=== PATIENT | female | born 1935 | race Caucasian/White ===

== ENCOUNTER 2016-11-05 21:37 | Emergency (ER) | payer MEDICARE ==
[~2016-11-05 21:37] MED LIST: ALBU17IN INH; ALBU83IN INH; AMLO10TA2 PO; ASPI325T PO; ATEN25TA PO; FOLI1TAB2 PO; ISOS30TA4 PO; LISI25TA PO; METH2.5TA PO; NITR4TASL SL; OMEP20CA3 PO; VITA100072 PO; ZOCO40TA PO
[2016-11-05] MEDS ORDERED: PERCOCET 5MG/325MG TAB As Ordered ONE (22:22)
--- NOTE | 2016-11-05 23:38 | EDDOCDS ---
Nurse's Notes [facility] Name: Rose Carbone Age: 81 yrs Sex: Female : 1935 Arrival Date: 11/05/2016 Time: 21:37 Bed 10 Private MD: Esteban Cortes A. Diagnosis: Pain in right shoulder Presentation: 11/05 21:40 Presenting complaint: EMS states: right shoulder surgery last week. pt ran out of pain mlc meds, pt did take 800 mg ibuprofen prior to arriving. Adult Sepsis Screening: The patient does not have new or worsening altered mentation. Patient's respiratory rate is less than 22. Systolic blood pressure is greater than 100. Patient has a qSOFA score of 0- Negative Sepsis Screen. Suicide/Homicide risk assessment- the patient denies having any suicidal and/or homicidal ideations and does not present with any other emotional, behavioral or mental health complaints. Status: Patient is not a servicer or dependent. Transition of care: patient was not received from another setting of care. 21:40 Acuity: ALDO Level 4 mlc 21:40 Method Of Arrival: Ambulance mlc Triage Assessment: 21:47 General: Appears in no apparent distress, comfortable, Behavior is cooperative. Pain: mlc Location: anterior aspect of right shoulder Pain currently is 5 out of 10 on a pain scale. The patient is triaged at the bedside. See Assessment in Nurses Notes section of ED record. Neurological: Level of Consciousness is awake, alert, obeys commands, Oriented to person, place, time. Cardiovascular: Capillary refill < 3 seconds Pulses are all present. Respiratory: Airway is patent Respiratory effort is even, unlabored, Respiratory pattern is regular. Derm: Skin is pink, warm & dry. Bruising that is green, on anterior aspect of right shoulder 3 bandaids covering incisions, no drainage noted. Historical: - Allergies: SULFA (SULFONAMIDES); - Home Meds: 1. Albuterol Inhl 2. methotrexate sodium 2.5 mg Oral tab 5 tab weekly 3. simvastatin 40 mg Oral tab 1 tab once daily 4. atenolol 25 mg Oral tab 1 tab once daily 5. nitroglycerin 0.4 mg SL subl 1 tab every 5 minutes 6. Calcium + Vitamin D 600 mg calcium- 200 unit Oral tab 7. amlodipine 10 mg Oral tab 1 tab once daily 8. isosorbide mononitrate 30 mg Oral tab 1 tab once daily 9. lisinopril 2.5 mg Oral tab 1 tab once daily 10. folic acid 1 mg Oral tab 1 tab once daily 11. aspirin 325 mg Oral tab 1 tab once daily 12. [place] 5-325 mg Oral tab 1 tab every 4 hours (Last dose: 11/05/2016 05:30) - PMHx: COPD; Hypercholesterolemia; Hypertension; Rheumatoid Arthritis; - PSHx: (1966); eye surgery; left hand surgery; Cataract Surgery- Bilateral; Cardiac stents; left rotator cuff; - Social history: Smoking status: Patient states was never smoker of tobacco. No barriers to communication noted, The patient speaks fluent Pashto. - Family history: Not pertinent. - : The pt / caregiver states he / she is not on anticoagulants. Home medication list is obtained from the patient, pill bottles. - Exposure Risk Screening:: None identified. Screenin:50 Screening information is obtained from the patient. Fall risk: No risks identified. [facility] Assistance ADL's: requires no assistance with activities of daily living. Abuse/DV Screen: The patient / caregiver reports he/she is: not in a situation that causes fear, pain or injury. Nutritional screening: No deficits noted. Advance Directives: Currently, there is no health care proxy. There is no active DNR order. There is no Power of Drug Safety Data Management Specialist. home support is adequate. Assessment: 22:25 General: see triage assessment. [facility] 22:25 Reassessment: Patient appears in no apparent distress at this time. pt medicated per [facility] order. 23:36 General: Appears in no apparent distress, comfortable, Behavior is cooperative. [facility] Neurological: Level of Consciousness is awake, alert, Oriented to person, place, time. Respiratory: Airway is patent Respiratory effort is even, unlabored, Respiratory pattern is regular. Vital Signs: 21:43 BP 150 / 67; Pulse 74; Resp 18; Temp 98.9(TE); Pulse Ox 97% on R/A; Weight 49.9 kg (R); elizabeth Height 5 ft. 0 in. (152.40 cm) (R); Pain 5/10; 23:14 BP 128 / 96 LA Sitting (auto/reg); Pulse 69 MON; Resp 20 S; Temp 98.7(TE); Pulse Ox 95% cln on R/A; Pain 5/10; 21:43 Body Mass Index 21.48 (49.90 kg, 152.40 cm) elizabeth Vitals: 21:47 Log In Time N/A - ambulance arrival. mlc ED Course: 21:38 Patient visited by Blaise Correia, Sweatband Cutting Machine Operator. ml3 21:38 Esteban Cortes is Private Physician. ml3 21:38 Krissy Lazaro,LORI is Primary Nurse. ml3 21:38 Patient moved to Waiting ml3 21:38 Patient moved to 10 ml3 21:42 Triage Initiated mlc 21:44 Patient visited by Liya Cornejo PCA. elizabeth 21:44 Pt greeted and oriented to ED. Patient advised of names of staff involved in care, elizabeth location of call crawford, wait times and NPO status. Patient has correct armband on for positive identification. Bed in low position. Call light in reach. Side rails up X2. Pulse ox on. NIBP on. 22:02 Jaja Gallagher MD is Attending Physician. fg 22:10 Patient visited by Jaja Gallagher MD. fg 22:26 Patient visited by Krissy Lazaro RN. mlc 23:15 Patient visited by Elsa Crawford PCA. cln 23:36 The patient / caregiver is instructed regarding the plan of care and ED course. mlc 23:36 No IV's were initiated during this patient's visit. No procedures done that require mlc assistance. Administered Medications: 22:25 Drug: oxyCODONE-acetaminophen 1 tabs [oxycodone-acetaminophen 5 mg-325 mg tablet (1 mlc tabs)] Route: PO; 23:37 Follow up: Response: Pain is decreased mlc Order Results: There are currently no results for this order. Outcome: 23:11 Discharge ordered by Provider. fg 23:36 Discharge Assessment: Patient awake, alert and oriented x 3. No cognitive and/or mlc functional deficits noted. Patient verbalized understanding of disposition instructions. patient administered narcotics - yes. Pt provided with safe discharge. The following High Risk Discharge criteria are identified: None. Discharged to home via wheelchair, with family. Condition: good Condition: stable. Discharge instructions given to patient, family, Instructed on discharge instructions, follow up and referral plans. medication usage, Demonstrated understanding of instructions, medications, Pt was receptive of discharge instructions/ teaching. Prescriptions given X 2. No special radiology studies were completed. Property sent home with patient. 23:37 Patient left the ED. [facility] Signatures: Blaise Correia, Sweatband Cutting Machine Operator Unit ml3 Liya Cornejo, MATERIAL CUTTER MATERIAL CUTTER Krissy Lopez,LORI RN [facility] Jaja Gallagher MD MD Elsa Crawford, MATERIAL CUTTER MATERIAL CUTTER cln MTDD
--- NOTE | 2016-11-05 23:38 | EDDOCDS ---
Physician Documentation [facility] Name: Rose Carbone Age: 81 yrs Sex: Female : 1935 Arrival Date: 11/05/2016 Time: 21:37 Bed 10 Private MD: Esteban Cortes A. Disposition: 11/05/16 23:11 Discharged to Home/Self Care. Impression: Pain in right shoulder. - Condition is Stable. - Discharge Instructions: Shoulder Pain, [id number]. - Prescriptions for Colace 100 mg Oral Tablet - take 1 tablet by ORAL route every 12 hours; 14 tablet. Percocet 5- 325 mg Oral Tablet - take 1 tablet by ORAL route every 6 hours As needed MDD: 4 tabs; 15 tablet. - Medication Reconciliation, Local Pharmacy Hours form. - Follow up: Private Physician; When: Call to arrange an appointment; Reason: Continuance of care. - Problem is new. - Symptoms have improved. Historical: - Allergies: SULFA (SULFONAMIDES); - Home Meds: 1. Albuterol Inhl 2. methotrexate sodium 2.5 mg Oral tab 5 tab weekly 3. simvastatin 40 mg Oral tab 1 tab once daily 4. atenolol 25 mg Oral tab 1 tab once daily 5. nitroglycerin 0.4 mg SL subl 1 tab every 5 minutes 6. Calcium + Vitamin D 600 mg calcium- 200 unit Oral tab 7. amlodipine 10 mg Oral tab 1 tab once daily 8. isosorbide mononitrate 30 mg Oral tab 1 tab once daily 9. lisinopril 2.5 mg Oral tab 1 tab once daily 10. folic acid 1 mg Oral tab 1 tab once daily 11. aspirin 325 mg Oral tab 1 tab once daily 12. [place] 5-325 mg Oral tab 1 tab every 4 hours (Last dose: 11/05/2016 05:30) - PMHx: COPD; Hypercholesterolemia; Hypertension; Rheumatoid Arthritis; - PSHx: (1965); eye surgery; left hand surgery; Cataract Surgery- Bilateral; Cardiac stents; left rotator cuff; - Social history: Smoking status: Patient states was never smoker of tobacco. No barriers to communication noted, The patient speaks fluent Maori. - Family history: Not pertinent. - : The pt / caregiver states he / she is not on anticoagulants. Home medication list is obtained from the patient, pill bottles. - Exposure Risk Screening:: None identified. Vital Signs: 11/05 21:43 BP 150 / 67; Pulse 74; Resp 18; Temp 98.9(TE); Pulse Ox 97% on R/A; Weight 49.9 kg / elizabeth 110.01 lbs (R); Height 5 ft. 0 in. (152.40 cm) (R); Pain 5/10; 23:14 BP 128 / 96 LA Sitting (auto/reg); Pulse 69 MON; Resp 20 S; Temp 98.7(TE); Pulse Ox 95% cln on R/A; Pain 5/10; 21:43 Body Mass Index 21.48 (49.90 kg, 152.40 cm) elizabeth MDM: 22:20 oxyCODONE-acetaminophen 5 mg-325 mg 1 tabs PO once ordered. fg 22:22 Shoulder (1 View) Ordered. EDMS 23:28 Financial registration complete. [facility] Administered Medications: 22:25 Drug: oxyCODONE-acetaminophen 1 tabs [oxycodone-acetaminophen 5 mg-325 mg tablet (1 mlc tabs)] Route: PO; 23:37 Follow up: Response: Pain is decreased mlc Signatures: Dispatcher [employer] EDMS Krissy Lazaro RN RN mlc Hook, Sandra Jaja Peng MD MD fg MTDD
--- NOTE | 2016-11-06 20:54 | REP ---
AP view right shoulder 11/05/2016 Indication: Right shoulder pain Comparison: right shoulder series 10/18/2016 performed at [facility] Surgical clips or anchors are identified within the region of the greater tuberosity, likely from repair of supraspinatus tendon. 2 small calcific foci are seen overlying the subcutaneous tissues of the right shoulder. Subchondral cystic changes are present within the greater tuberosity as previously noted. There is no acute fracture or dislocation. Signed by Ruma Hudson MD 11/06/2016 08:46 P
--- NOTE | 2016-11-08 00:39 | EDDOCDS ---
Physician Documentation [facility] Name: Rose Carbone Age: 81 yrs Sex: Female : 1935 Arrival Date: 11/05/2016 Time: 21:37 Bed 10 Private MD: Esteban Cortes A. Disposition: 11/05/16 23:11 Discharged to Home/Self Care. Impression: Pain in right shoulder. - Condition is Stable. - Discharge Instructions: Shoulder Pain, [id number]. - Prescriptions for Colace 100 mg Oral Tablet - take 1 tablet by ORAL route every 12 hours; 14 tablet. Percocet 5- 325 mg Oral Tablet - take 1 tablet by ORAL route every 6 hours As needed MDD: 4 tabs; 15 tablet. - Medication Reconciliation, Local Pharmacy Hours form. - Follow up: Private Physician; When: Call to arrange an appointment; Reason: Continuance of care. - Problem is new. - Symptoms have improved. Historical: - Allergies: SULFA (SULFONAMIDES); - Home Meds: 1. Albuterol Inhl 2. methotrexate sodium 2.5 mg Oral tab 5 tab weekly 3. simvastatin 40 mg Oral tab 1 tab once daily 4. atenolol 25 mg Oral tab 1 tab once daily 5. nitroglycerin 0.4 mg SL subl 1 tab every 5 minutes 6. Calcium + Vitamin D 600 mg calcium- 200 unit Oral tab 7. amlodipine 10 mg Oral tab 1 tab once daily 8. isosorbide mononitrate 30 mg Oral tab 1 tab once daily 9. lisinopril 2.5 mg Oral tab 1 tab once daily 10. folic acid 1 mg Oral tab 1 tab once daily 11. aspirin 325 mg Oral tab 1 tab once daily 12. [place] 5-325 mg Oral tab 1 tab every 4 hours (Last dose: 11/05/2016 05:30) - PMHx: COPD; Hypercholesterolemia; Hypertension; Rheumatoid Arthritis; - PSHx: (1965); eye surgery; left hand surgery; Cataract Surgery- Bilateral; Cardiac stents; left rotator cuff; - Social history: Smoking status: Patient states was never smoker of tobacco. No barriers to communication noted, The patient speaks fluent Irish. - Family history: Not pertinent. - : The pt / caregiver states he / she is not on anticoagulants. Home medication list is obtained from the patient, pill bottles. - Exposure Risk Screening:: None identified. Vital Signs: 11/05 21:43 BP 150 / 67; Pulse 74; Resp 18; Temp 98.9(TE); Pulse Ox 97% on R/A; Weight 49.9 kg / elizabeth 110.01 lbs (R); Height 5 ft. 0 in. (152.40 cm) (R); Pain 5/10; 23:14 BP 128 / 96 LA Sitting (auto/reg); Pulse 69 MON; Resp 20 S; Temp 98.7(TE); Pulse Ox 95% cln on R/A; Pain 5/10; 21:43 Body Mass Index 21.48 (49.90 kg, 152.40 cm) elizabeth MDM: 22:20 oxyCODONE-acetaminophen 5 mg-325 mg 1 tabs PO once ordered. fg 22:22 Shoulder (1 View) Ordered. EDMS 23:28 Financial registration complete. [facility] 23:38 [facility] Payment Agreement was scanned into [employer] and attached to record. [facility] 11/06 17:43 T-Sheet-- Draft Copy was scanned into [employer] and attached to record. klr Administered Medications: 11/05 22:25 Drug: oxyCODONE-acetaminophen 1 tabs [oxycodone-acetaminophen 5 mg-325 mg tablet (1 mlc tabs)] Route: PO; 23:37 Follow up: Response: Pain is decreased mlc Signatures: Dispatcher [employer] EDLA Krissy Lazaro RN RN mlc Hook, Johnna Jaja Peng MD MD fg Beck, Gabriela gjb Redder, Kathie klr The chart was reviewed and I authenticate all verbal orders and agree with the evaluation and treatment provided.Attachments: 23:38 [facility]LY [facility] Payment Agreement [facility] 11/06 17:43 T-Sheet-- Draft Copy klr Chart Complete MTDD
--- NOTE | 2016-11-08 00:39 | EDDOCDS ---
Nurse's Notes [facility] Name: Rose Carbone Age: 81 yrs Sex: Female : 1935 Arrival Date: 11/05/2016 Time: 21:37 Bed 10 Private MD: Esteban Cortes A. Diagnosis: Pain in right shoulder Presentation: 11/05 21:40 Presenting complaint: EMS states: right shoulder surgery last week. pt ran out of pain mlc meds, pt did take 800 mg ibuprofen prior to arriving. Adult Sepsis Screening: The patient does not have new or worsening altered mentation. Patient's respiratory rate is less than 22. Systolic blood pressure is greater than 100. Patient has a qSOFA score of 0- Negative Sepsis Screen. Suicide/Homicide risk assessment- the patient denies having any suicidal and/or homicidal ideations and does not present with any other emotional, behavioral or mental health complaints. Status: Patient is not a customer service specialist or dependent. Transition of care: patient was not received from another setting of care. 21:40 Acuity: ALDO Level 4 mlc 21:40 Method Of Arrival: Ambulance mlc Triage Assessment: 21:47 General: Appears in no apparent distress, comfortable, Behavior is cooperative. Pain: mlc Location: anterior aspect of right shoulder Pain currently is 5 out of 10 on a pain scale. The patient is triaged at the bedside. See Assessment in Nurses Notes section of ED record. Neurological: Level of Consciousness is awake, alert, obeys commands, Oriented to person, place, time. Cardiovascular: Capillary refill < 3 seconds Pulses are all present. Respiratory: Airway is patent Respiratory effort is even, unlabored, Respiratory pattern is regular. Derm: Skin is pink, warm & dry. Bruising that is green, on anterior aspect of right shoulder 3 bandaids covering incisions, no drainage noted. Historical: - Allergies: SULFA (SULFONAMIDES); - Home Meds: 1. Albuterol Inhl 2. methotrexate sodium 2.5 mg Oral tab 5 tab weekly 3. simvastatin 40 mg Oral tab 1 tab once daily 4. atenolol 25 mg Oral tab 1 tab once daily 5. nitroglycerin 0.4 mg SL subl 1 tab every 5 minutes 6. Calcium + Vitamin D 600 mg calcium- 200 unit Oral tab 7. amlodipine 10 mg Oral tab 1 tab once daily 8. isosorbide mononitrate 30 mg Oral tab 1 tab once daily 9. lisinopril 2.5 mg Oral tab 1 tab once daily 10. folic acid 1 mg Oral tab 1 tab once daily 11. aspirin 325 mg Oral tab 1 tab once daily 12. [place] 5-325 mg Oral tab 1 tab every 4 hours (Last dose: 11/05/2016 05:30) - PMHx: COPD; Hypercholesterolemia; Hypertension; Rheumatoid Arthritis; - PSHx: (1966); eye surgery; left hand surgery; Cataract Surgery- Bilateral; Cardiac stents; left rotator cuff; - Social history: Smoking status: Patient states was never smoker of tobacco. No barriers to communication noted, The patient speaks fluent Kyrgyz. - Family history: Not pertinent. - : The pt / caregiver states he / she is not on anticoagulants. Home medication list is obtained from the patient, pill bottles. - Exposure Risk Screening:: None identified. Screenin:50 Screening information is obtained from the patient. Fall risk: No risks identified. [facility] Assistance ADL's: requires no assistance with activities of daily living. Abuse/DV Screen: The patient / caregiver reports he/she is: not in a situation that causes fear, pain or injury. Nutritional screening: No deficits noted. Advance Directives: Currently, there is no health care proxy. There is no active DNR order. There is no Power of Zipper Trimmer. home support is adequate. Assessment: 22:25 General: see triage assessment. [facility] 22:25 Reassessment: Patient appears in no apparent distress at this time. pt medicated per [facility] order. 23:36 General: Appears in no apparent distress, comfortable, Behavior is cooperative. [facility] Neurological: Level of Consciousness is awake, alert, Oriented to person, place, time. Respiratory: Airway is patent Respiratory effort is even, unlabored, Respiratory pattern is regular. Vital Signs: 21:43 BP 150 / 67; Pulse 74; Resp 18; Temp 98.9(TE); Pulse Ox 97% on R/A; Weight 49.9 kg (R); elizabeth Height 5 ft. 0 in. (152.40 cm) (R); Pain 5/10; 23:14 BP 128 / 96 LA Sitting (auto/reg); Pulse 69 MON; Resp 20 S; Temp 98.7(TE); Pulse Ox 95% cln on R/A; Pain 5/10; 21:43 Body Mass Index 21.48 (49.90 kg, 152.40 cm) elizabeth Vitals: 21:47 Log In Time N/A - ambulance arrival. mlc ED Course: 21:38 Patient visited by Blaise Correia, Service Team Leader. ml3 21:38 Esteban Cortes is Private Physician. ml3 21:38 Krissy Lazaro,RN is Primary Nurse. ml3 21:38 Patient moved to Waiting ml3 21:38 Patient moved to 10 ml3 21:42 Triage Initiated mlc 21:44 Patient visited by Liya Cornejo PCA. elizabeth 21:44 Pt greeted and oriented to ED. Patient advised of names of staff involved in care, elizabeth location of call crawford, wait times and NPO status. Patient has correct armband on for positive identification. Bed in low position. Call light in reach. Side rails up X2. Pulse ox on. NIBP on. 22:02 Jaja Gallagher MD is Attending Physician. fg 22:10 Patient visited by Jaja Gallagher MD. fg 22:26 Patient visited by Krissy Lazaro RN. mlc 23:15 Patient visited by Elsa Crawford PCA. cln 23:36 The patient / caregiver is instructed regarding the plan of care and ED course. mlc 23:36 No IV's were initiated during this patient's visit. No procedures done that require mlc assistance. 23:38 [facility] Payment Agreement was scanned into [employer] and attached to record. gjb 23:42 Patient name changed from Rose\S\L\S\Ritter\S\ to Rose\S\ \S\Ritter. EDMS 11/06 17:43 T-Sheet-- Draft Copy was scanned into [employer] and attached to record. klr 20:58 Shoulder (1 View) Returned. EDMS Administered Medications: 11/05 22:25 Drug: oxyCODONE-acetaminophen 1 tabs [oxycodone-acetaminophen 5 mg-325 mg tablet (1 mlc tabs)] Route: PO; 23:37 Follow up: Response: Pain is decreased mlc Order Results: Radiology Order: Shoulder (1 View) Test: Shoulder (1 View) REASON FOR EXAMINATION: left shoulder pain; AP view right shoulder 11/05/2016; ; Indication: Right shoulder pain; ; Comparison: right shoulder series 10/18/[address] [facility]; ; Surgical clips or anchors are identified within the region of the greater; tuberosity, likely from repair of supraspinatus tendon. 2 small calcific foci; are seen overlying the subcutaneous tissues of the right shoulder. Subchondral; cystic changes are present within the greater tuberosity as previously noted.; There is no acute fracture or dislocation.; ; ; Signed by; Ruma Hudson MD 11/06/2016 08:46 P; Outcome: 23:11 Discharge ordered by Provider. fg 23:36 Discharge Assessment: Patient awake, alert and oriented x 3. No cognitive and/or mlc functional deficits noted. Patient verbalized understanding of disposition instructions. patient administered narcotics - yes. Pt provided with safe discharge. The following High Risk Discharge criteria are identified: None. Discharged to home via wheelchair, with family. Condition: good Condition: stable. Discharge instructions given to patient, family, Instructed on discharge instructions, follow up and referral plans. medication usage, Demonstrated understanding of instructions, medications, Pt was receptive of discharge instructions/ teaching. Prescriptions given X 2. No special radiology studies were completed. Property sent home with patient. 23:37 Patient left the ED. [facility] Signatures: Dispatcher [employer] EDMS Blaise Correia, Service Team Leader Unit ml3 Liya Cornejo, PREPARATION DEPARTMENT SUPERVISOR PREPARATION DEPARTMENT SUPERVISOR Krissy Lopez,LORI RN mlc Jaja Gallagher MD MD fg Beck, Gabriela gjb Nichols, Crystal, PREPARATION DEPARTMENT SUPERVISOR PREPARATION DEPARTMENT SUPERVISOR Raisa Caro Chart Complete MTDD
--- NOTE | 2016-11-08 00:39 | EDDOCDS ---
Physician Documentation [facility] Name: Rose Carbone Age: 81 yrs Sex: Female : 1935 Arrival Date: 11/05/2016 Time: 21:37 Bed 10 Private MD: Esteban Cortes A. Disposition: 11/05/16 23:11 Discharged to Home/Self Care. Impression: Pain in right shoulder. - Condition is Stable. - Discharge Instructions: Shoulder Pain, [id number]. - Prescriptions for Colace 100 mg Oral Tablet - take 1 tablet by ORAL route every 12 hours; 14 tablet. Percocet 5- 325 mg Oral Tablet - take 1 tablet by ORAL route every 6 hours As needed MDD: 4 tabs; 15 tablet. - Medication Reconciliation, Local Pharmacy Hours form. - Follow up: Private Physician; When: Call to arrange an appointment; Reason: Continuance of care. - Problem is new. - Symptoms have improved. Historical: - Allergies: SULFA (SULFONAMIDES); - Home Meds: 1. Albuterol Inhl 2. methotrexate sodium 2.5 mg Oral tab 5 tab weekly 3. simvastatin 40 mg Oral tab 1 tab once daily 4. atenolol 25 mg Oral tab 1 tab once daily 5. nitroglycerin 0.4 mg SL subl 1 tab every 5 minutes 6. Calcium + Vitamin D 600 mg calcium- 200 unit Oral tab 7. amlodipine 10 mg Oral tab 1 tab once daily 8. isosorbide mononitrate 30 mg Oral tab 1 tab once daily 9. lisinopril 2.5 mg Oral tab 1 tab once daily 10. folic acid 1 mg Oral tab 1 tab once daily 11. aspirin 325 mg Oral tab 1 tab once daily 12. [place] 5-325 mg Oral tab 1 tab every 4 hours (Last dose: 11/05/2016 05:30) - PMHx: COPD; Hypercholesterolemia; Hypertension; Rheumatoid Arthritis; - PSHx: (1965); eye surgery; left hand surgery; Cataract Surgery- Bilateral; Cardiac stents; left rotator cuff; - Social history: Smoking status: Patient states was never smoker of tobacco. No barriers to communication noted, The patient speaks fluent Faroese. - Family history: Not pertinent. - : The pt / caregiver states he / she is not on anticoagulants. Home medication list is obtained from the patient, pill bottles. - Exposure Risk Screening:: None identified. Vital Signs: 11/05 21:43 BP 150 / 67; Pulse 74; Resp 18; Temp 98.9(TE); Pulse Ox 97% on R/A; Weight 49.9 kg / elizabeth 110.01 lbs (R); Height 5 ft. 0 in. (152.40 cm) (R); Pain 5/10; 23:14 BP 128 / 96 LA Sitting (auto/reg); Pulse 69 MON; Resp 20 S; Temp 98.7(TE); Pulse Ox 95% cln on R/A; Pain 5/10; 21:43 Body Mass Index 21.48 (49.90 kg, 152.40 cm) elizabeth MDM: 22:20 oxyCODONE-acetaminophen 5 mg-325 mg 1 tabs PO once ordered. fg 22:22 Shoulder (1 View) Ordered. EDMS 23:28 Financial registration complete. [facility] 23:38 [facility] Payment Agreement was scanned into [employer] and attached to record. [facility] 11/06 17:43 T-Sheet-- Draft Copy was scanned into [employer] and attached to record. klr Administered Medications: 11/05 22:25 Drug: oxyCODONE-acetaminophen 1 tabs [oxycodone-acetaminophen 5 mg-325 mg tablet (1 mlc tabs)] Route: PO; 23:37 Follow up: Response: Pain is decreased mlc Signatures: Dispatcher [employer] EDMI Krissy Lazaro RN RN mlc Hook, Johnna Jaja Peng MD MD fg Beck, Gabriela gjb Redder, Kathie klr The chart was reviewed and I authenticate all verbal orders and agree with the evaluation and treatment provided.Attachments: 23:38 [facility] Payment Agreement [facility] 11/06 17:43 T-Sheet-- Draft Copy klr Chart Complete MTDD
== END 2016-11-05 23:37 | disposition home or self-care (01) ==
LOC: M ED 21:37
DX: M25.511 Pain in right shoulder (principal); I10 Essential (primary) hypertension; J44.9 Chronic obstructive pulmonary disease, unspecified; E78.5 Hyperlipidemia, unspecified; M06.9 Rheumatoid arthritis, unspecified; Z79.899 Other long term (current) drug therapy; Z79.82 Long term (current) use of aspirin; Z88.2 Allergy status to sulfonamides; Z95.5 Presence of coronary angioplasty implant and graft

== ENCOUNTER 2017-01-12 07:45 | Outpatient (RCR) | payer MEDICARE ==
[~2017-01-12 07:45] MED LIST changes: +LISI2.5T76 PO; -LISI25TA PO
== END 2017-01-13 ==
LOC: M PT 07:45
PROVIDERS: ATTEND Orthopaedic Surgery
DX: M25.511 Pain in right shoulder (principal); S46.011S Strain of muscle(s) and tendon(s) of the rotator cuff of right shoulder, sequela; X58.XXXS Exposure to other specified factors, sequela; Y92.9 Unspecified place or not applicable
CPT/HCPCS: 97110; 97140; 97161; G8984; G8985

== ENCOUNTER 2017-02-09 07:14 | Outpatient (RCR) | payer MEDICARE | END 2017-02-12 | LOC: M PT 07:14 | PROVIDERS: ATTEND Orthopaedic Surgery | DX: M25.511 Pain in right shoulder (principal); S46.011S Strain of muscle(s) and tendon(s) of the rotator cuff of right shoulder, sequela; X58.XXXS Exposure to other specified factors, sequela; Y92.9 Unspecified place or not applicable | CPT/HCPCS: 97110; 97140; G8984; G8985; G8986 ==

== ENCOUNTER 2017-02-20 09:59 | Emergency (ER) | payer MEDICARE ==
[~2017-02-20] VITALS: Ht 152.4 cm; Wt 45.4 kg
[2017-02-20 10:00] VITALS: BP 124/71
[2017-02-20] MEDS ORDERED: PRED10TA PO (10:51)
[2017-02-20] MEDS ORDERED: CLAR1TAB2 PO (10:51)
== END 2017-02-20 11:02 | disposition home or self-care (01) ==
LOC: M ED 10:45
DX: R21 Rash and other nonspecific skin eruption (principal); Z95.5 Presence of coronary angioplasty implant and graft; R51 Headache; E78.00 Pure hypercholesterolemia, unspecified; I10 Essential (primary) hypertension; Z86.718 Personal history of other venous thrombosis and embolism; J44.9 Chronic obstructive pulmonary disease, unspecified; M54.9 Dorsalgia, unspecified; Z79.82 Long term (current) use of aspirin; Z79.899 Other long term (current) drug therapy; Z88.6 Allergy status to analgesic agent; Z88.2 Allergy status to sulfonamides; Z88.8 Allergy status to other drugs, medicaments and biological substances; Z88.1 Allergy status to other antibiotic agents

== ENCOUNTER → 2017-03-15 | Outpatient (RCR) | payer MEDICARE ==
[~2017-03-15] MED LIST changes: +CLAR1TAB2 PO; +PRED10TA PO
== END | disposition home or self-care (01) ==
LOC: M PT 02-16 08:40
PROVIDERS: ATTEND Orthopaedic Surgery
DX: M25.511 Pain in right shoulder (principal); S46.011S Strain of muscle(s) and tendon(s) of the rotator cuff of right shoulder, sequela
CPT/HCPCS: 97110; 97140; G8984; G8985

== ENCOUNTER 2017-03-24 07:45 | Outpatient (RCR) | payer MEDICARE ==
[~2017-03-24 07:45] MED LIST changes: -FOLI1TAB2 PO; +FOLI1TAB4 PO; -PRED10TA PO; +PRED10TA2 PO
== END 2017-04-14 ==
LOC: M PT 07:45
PROVIDERS: ATTEND Orthopaedic Surgery
DX: M25.111 Fistula, right shoulder (principal); S46.011S Strain of muscle(s) and tendon(s) of the rotator cuff of right shoulder, sequela

== ENCOUNTER → 2017-05-11 | Outpatient (CLI) | payer MEDICARE ==
[~2017-05-11] MED LIST changes: +BENA25TA10 PO; +CEPH250T PO; +CIPR-250 PO; +PRED20TA PO; +ZYRT10TA2 PO
--- NOTE | 2017-05-11 12:22 | REP ---
REASON: Edema. COMPARISON: Multiple latest 10/28/2016. There is no change from the prior exam other than technique (today's exam using PA and lateral technique with the prior exam being obtained using AP and lateral technique). There is a left ventricular configuration to a mildly enlarged heart. No acute patchy parenchymal opacities or pleural effusions are seen. The pleural angles are again seen to be sharp and the osseous structures stable and intact. IMPRESSION: Stable appearing chronic changes as described above. Signed by Edis Valdez DO 05/11/2017 04:43 P
== END ==
LOC: M RAD 10:56
PROVIDERS: ATTEND Physician Assistant
DX: R60.0 Localized edema (principal)

== ENCOUNTER 2017-05-17 10:48 | Emergency (ER) | payer MEDICARE ==
[~2017-05-17] VITALS: Ht 152.4 cm; Wt 49.7 kg
[~2017-05-17 10:48] MED LIST changes: -BENA25TA10 PO; -CEPH250T PO; -CIPR-250 PO; -PRED20TA PO; -ZYRT10TA2 PO
[2017-05-17 11:55] LABS: INR 0.93
[2017-05-17 11:59] LABS: BASO % 0.2 % (0.0-1.0); EOS # 0.4 K/mm3 (0.0-0.50); EOS % 3.2 % (0.0-3.0); LARGE UNSTAINED CELL # 0.2 K/mm3 (0.0-0.4); LARGE UNSTAINED CELL % 1.9 % (0.0-4.0); LYMPH % 14.5 % (24.0-44.0); MEAN CORPUSCULAR HEMOGLOBIN 30.6 pg (27.0-33.0); MEAN CORPUSCULAR HGB CONC 32.9 g/dl (32.0-36.5); MEAN CORPUSCULAR VOLUME 93.2 fl (80.0-96.0); MONO # 0.6 K/mm3 (0.0-0.8); MONO % 5.1 % (0.0-5.0); NEUTROPHILS # 9.1 K/mm3 (1.8-7.7); PLATELET COUNT, AUTOMATED 332 k/mm3 (150-450); RED CELL DISTRIBUTION WIDTH 13.4 % (11.5-14.5); WHITE BLOOD COUNT 12.1 K/mm3 (4.0-10.0)
[2017-05-17 12:11] LABS: ALBUMIN/GLOBULIN RATIO 0.98 (1.00-1.93); ALKALINE PHOSPHATASE 93 U/L (45-117); ALT/SGPT 15 U/L (12-78); ANION GAP 7 MEQ/L (8-16); AST/SGOT 14 U/L (15-37); BILIRUBIN,DIRECT < 0.1 MG/DL (0.0-0.2); BILIRUBIN,TOTAL 0.3 MG/DL (0.2-1.0); BLOOD UREA NITROGEN 31 MG/DL (7-18); CALCIUM LEVEL 9.1 MG/DL (8.8-10.2); CARBON DIOXIDE LEVEL 27 MEQ/L (21-32); CHLORIDE LEVEL 108 MEQ/L (98-107); CREATININE FOR GFR 1.11 MG/DL (0.55-1.02); GLOMERULAR FILTRATION RATE 50.2 (>32); GLUCOSE, FASTING 95 MG/DL (83-110); POTASSIUM SERUM 3.9 MEQ/L (3.5-5.1); SODIUM LEVEL 142 MEQ/L (136-145); TOTAL PROTEIN 8.1 GM/DL (6.4-8.2)
[2017-05-17 12:35] LABS: ERYTHROCYTE SEDIMENTATION RATE 17 mm/hr (0-30)
[2017-05-17] MEDS ORDERED: CEPH250T PO (13:27)
[2017-05-17] MEDS ORDERED: ZYRT10TA2 PO (13:27)
[2017-05-17] MEDS ORDERED: PRED20TA PO (13:27)
[2017-05-17 13:40] VITALS: BP 124/62
== END 2017-05-17 13:41 | disposition home or self-care (01) ==
LOC: M ED 10:48
DX: L30.9 Dermatitis, unspecified (principal); I51.9 Heart disease, unspecified; I25.10 Atherosclerotic heart disease of native coronary artery without angina pectoris; I50.9 Heart failure, unspecified; I25.2 Old myocardial infarction; I10 Essential (primary) hypertension; M06.9 Rheumatoid arthritis, unspecified; Z79.899 Other long term (current) drug therapy; Z79.82 Long term (current) use of aspirin; Z88.6 Allergy status to analgesic agent; Z88.2 Allergy status to sulfonamides; Z88.8 Allergy status to other drugs, medicaments and biological substances

== ENCOUNTER → 2017-06-06 | Outpatient (REF) | payer MEDICARE ==
[~2017-06-06] MED LIST changes: +BENA25TA10 PO; +CEPH250T PO; +CIPR-250 PO; +PRED20TA PO; +ZYRT10TA2 PO
[2017-06-06 18:15] LABS: FOLATE 11.7 NG/ML (>5.4); VITAMIN B12 LEVEL 404 PG/ML (247-911)
[2017-06-06 18:19] LABS: ALBUMIN 3.4 GM/DL (3.2-5.2); ALBUMIN/GLOBULIN RATIO 1.13 (1.00-1.93); ALKALINE PHOSPHATASE 65 U/L (45-117); ALT/SGPT 14 U/L (12-78); ANION GAP 7 MEQ/L (8-16); AST/SGOT 7 U/L (15-37); BILIRUBIN,TOTAL 0.2 MG/DL (0.2-1.0); BLOOD UREA NITROGEN 34 MG/DL (7-18); CALCIUM LEVEL 8.5 MG/DL (8.8-10.2); CARBON DIOXIDE LEVEL 28 MEQ/L (21-32); CHLORIDE LEVEL 107 MEQ/L (98-107); CREATININE FOR GFR 0.96 MG/DL (0.55-1.02); GLOMERULAR FILTRATION RATE 59.4 (>32); GLUCOSE, FASTING 100 MG/DL (83-110); POTASSIUM SERUM 4.4 MEQ/L (3.5-5.1); SODIUM LEVEL 142 MEQ/L (136-145); TOTAL PROTEIN 6.4 GM/DL (6.4-8.2)
[2017-06-06 19:33] LABS: MEAN CORPUSCULAR HEMOGLOBIN 30.3 pg (27.0-33.0); MEAN CORPUSCULAR HGB CONC 31.6 g/dl (32.0-36.5); MEAN CORPUSCULAR VOLUME 95.8 fl (80.0-96.0); RED CELL DISTRIBUTION WIDTH 13.1 % (11.5-14.5); WHITE BLOOD COUNT 9.3 K/mm3 (4.0-10.0)
== END ==
LOC: M LABNEURO 16:10
PROVIDERS: ATTEND Psychiatry & Neurology Neurology
DX: R41.3 Other amnesia (principal); Z11.9 Encounter for screening for infectious and parasitic diseases, unspecified; Z13.29 Encounter for screening for other suspected endocrine disorder

== ENCOUNTER 2017-06-16 15:49 | Emergency (ER) | payer MEDICARE ==
[~2017-06-16] VITALS: Ht 152.4 cm; Wt 50.0 kg
[~2017-06-16 15:49] MED LIST changes: -BENA25TA10 PO; -CIPR-250 PO
[2017-06-16] MEDS ORDERED: BENA25TA10 PO (16:28)
[2017-06-16 17:35] LABS: ADD MANUAL DIFFER YES; MEAN CORPUSCULAR HEMOGLOBIN 30.1 pg (27.0-33.0); MEAN CORPUSCULAR HGB CONC 32.4 g/dl (32.0-36.5); MEAN CORPUSCULAR VOLUME 92.9 fl (80.0-96.0); PLATELET COUNT, AUTOMATED 326 k/mm3 (150-450); RED CELL DISTRIBUTION WIDTH 13.2 % (11.5-14.5); WHITE BLOOD COUNT 14.7 K/mm3 (4.0-10.0)
[2017-06-16 17:37] VITALS: BP 114/64
[2017-06-16 17:54] LABS: ALBUMIN 3.7 GM/DL (3.2-5.2); ALBUMIN/GLOBULIN RATIO 1.19 (1.00-1.93); BILIRUBIN,TOTAL 0.4 MG/DL (0.2-1.0); CALCIUM LEVEL 8.7 MG/DL (8.8-10.2); CREATININE FOR GFR 1.71 MG/DL (0.55-1.02); GLOMERULAR FILTRATION RATE 30.5 (>32); POTASSIUM SERUM 4.3 MEQ/L (3.5-5.1); TOTAL PROTEIN 6.8 GM/DL (6.4-8.2)
[2017-06-16 18:11] LABS: EOSINOPHILS 1 % (0-5)
[2017-06-16] MEDS ORDERED: CIPR-250 PO (18:15)
== END 2017-06-16 18:22 | disposition home or self-care (01) ==
LOC: M ED 15:49
DX: N30.01 Acute cystitis with hematuria (principal); I25.10 Atherosclerotic heart disease of native coronary artery without angina pectoris; I38 Endocarditis, valve unspecified; Z79.82 Long term (current) use of aspirin; Z79.899 Other long term (current) drug therapy; Z88.6 Allergy status to analgesic agent; Z88.2 Allergy status to sulfonamides; Z88.8 Allergy status to other drugs, medicaments and biological substances

== ENCOUNTER → 2017-08-25 | Outpatient (CLI) | payer MEDICARE ==
[~2017-08-25] MED LIST changes: +BENA25TA10 PO; +CIPR-250 PO
[2017-08-25 10:36] LABS: BASO % 0.3 % (0.0-1.0); EOS # 0.3 10^3/uL (0.0-0.50); EOS % 3.4 % (0.0-3.0); IMMATURE GRANULOCYTE % 0.4 % (0-0); LYMPH # 2.4 10^3/uL (1.5-4.5); LYMPH % 23.9 % (24.0-44.0); MEAN CORPUSCULAR HGB CONC 31.9 g/dl (32.0-36.5); MEAN CORPUSCULAR VOLUME 90.9 fl (80.0-96.0); MONO % 10.2 % (0.0-5.0); NEUTROPHILS # 6.2 10^3/uL (1.8-7.7); NEUTROPHILS % 61.8 % (36.0-66.0); PLATELET COUNT, AUTOMATED 300 10^3/uL (150-450); RED CELL DISTRIBUTION WIDTH 13.1 % (11.5-14.5)
[2017-08-25 11:07] LABS: REASON FOR REVIEW COMPREHENSIVE REVIEW
== END ==
LOC: M LAB 10:01
PROVIDERS: ATTEND Family Medicine
DX: D69.6 Thrombocytopenia, unspecified (principal)

== ENCOUNTER → 2017-08-30 | Outpatient (REF) | payer MEDICARE | LOC: M LAB REF 15:35 | PROVIDERS: ATTEND Nurse Practitioner Family | DX: L08.9 Local infection of the skin and subcutaneous tissue, unspecified (principal) ==

== ENCOUNTER 2017-11-22 12:33 | Emergency (ER) | payer MEDICARE ==
[2017-11-22] MEDS: NS 500 ML IV (14:23)
[2017-11-22 14:30] LABS: AMORPHOUS SEDIMENT SMALL (NEGATIVE); APPEARANCE, URINE HAZY (CLEAR); BACTERIA, URINE AUTO NEGATIVE (NEGATIVE); BILIRUBIN, URINE AUTO NEGATIVE (NEGATIVE); BLOOD, URINE BLOOD 1+ (NEGATIVE); COLOR, URINE YELLOW (YELLOW); GLUCOSE, URINE (UA) AUTO NEGATIVE (NEGATIVE); KETONE, URINE AUTO NEGATIVE (NEGATIVE); LEUKOCYTE ESTERASE, URINE AUTO NEGATIVE (NEGATIVE); MUCUS, URINE SMALL (NEGATIVE); NITRITE, URINE AUTO NEGATIVE (NEGATIVE); PROTEIN, URINE AUTO NEGATIVE (NEGATIVE); RBC, URINE AUTO 2 /HPF (0-3); SPECIFIC GRAVITY URINE AUTO 1.014 (1.002-1.035); SQUAMOUS EPITHELIAL CELL UR AU 0 /HPF (0-6); UROBILINOGEN, URINE AUTO 0.2 mg/dL (0.0-2.0); WBC, URINE AUTO 5 /HPF (0-3)
[2017-11-22 14:33] LABS: BASO % 0.2 % (0.0-1.0); EOS % 0.2 % (0.0-3.0); HEMATOCRIT 44.3 % (36.0-47.0); HEMOGLOBIN 14.4 g/dl (12.0-16.0); IMMATURE GRANULOCYTE % 0.3 % (0-3.0); LYMPH # 0.6 10^3/uL (1.5-4.5); MEAN CORPUSCULAR HEMOGLOBIN 29.1 pg (27.0-33.0); MEAN CORPUSCULAR HGB CONC 32.5 g/dl (32.0-36.5); MEAN CORPUSCULAR VOLUME 89.5 fl (80.0-96.0); MONO # 0.9 10^3/uL (0.0-0.8); MONO % 10.2 % (0.0-5.0); NEUTROPHILS # 7.4 10^3/uL (1.8-7.7); NEUTROPHILS % 82.1 % (36.0-66.0); PLATELET COUNT, AUTOMATED 193 10^3/uL (150-450); RED BLOOD COUNT 4.95 10^6/uL (4.00-5.40); RED CELL DISTRIBUTION WIDTH 13.8 % (11.5-14.5)
[2017-11-22 14:59] LABS: ANION GAP 7 MEQ/L (8-16); BLOOD UREA NITROGEN 24 MG/DL (7-18); CALCIUM LEVEL 8.7 MG/DL (8.8-10.2); CARBON DIOXIDE LEVEL 31 MEQ/L (21-32); CHLORIDE LEVEL 104 MEQ/L (98-107); CREATININE FOR GFR 1.08 MG/DL (0.55-1.30); GLOMERULAR FILTRATION RATE 51.8 (>32); GLUCOSE, FASTING 99 MG/DL (70-100); NT-PRO BNP 343 PG/ML (<450); POTASSIUM SERUM 3.9 MEQ/L (3.5-5.1); SODIUM LEVEL 142 MEQ/L (136-145)
[2017-11-22 15:11] LABS: INFLUENZA A AMPLIFICATION POSITIVE (NEGATIVE); INFLUENZA B AMPLIFICATION NEGATIVE (NEGATIVE)
[2017-11-22] MEDS ORDERED: ACETAMINOPHEN TAB 650MG DOSE (2X325MG) PO (16:30)
[2017-11-22] MEDS ORDERED: BENZONATATE 100 MG CAP PO (16:30)
== END 2017-11-22 17:12 | disposition home or self-care (01) ==
LOC: M ED 12:33
DX: J09.X2 Influenza due to identified novel influenza A virus with other respiratory manifestations (principal); J44.1 Chronic obstructive pulmonary disease with (acute) exacerbation; I10 Essential (primary) hypertension; Z95.5 Presence of coronary angioplasty implant and graft; Z79.82 Long term (current) use of aspirin; Z79.899 Other long term (current) drug therapy; Z88.2 Allergy status to sulfonamides; Z88.1 Allergy status to other antibiotic agents; Z88.8 Allergy status to other drugs, medicaments and biological substances
CPT/HCPCS: 71046

== ENCOUNTER → 2017-12-11 | Outpatient (CLI) | payer MEDICARE ==
[2017-12-11 10:08] LABS: BASO % 0.3 % (0.0-1.0); EOS # 0.3 10^3/uL (0.0-0.50); EOS % 3.8 % (0.0-3.0); HEMATOCRIT 40.4 % (36.0-47.0); IMMATURE GRANULOCYTE % 0.3 % (0-3.0); LYMPH # 2.3 10^3/uL (1.5-4.5); LYMPH % 30.4 % (24.0-44.0); MEAN CORPUSCULAR HEMOGLOBIN 29.2 pg (27.0-33.0); MEAN CORPUSCULAR HGB CONC 32.2 g/dl (32.0-36.5); MEAN CORPUSCULAR VOLUME 90.8 fl (80.0-96.0); MONO # 0.8 10^3/uL (0.0-0.8); MONO % 9.8 % (0.0-5.0); NEUTROPHILS # 4.3 10^3/uL (1.8-7.7); NEUTROPHILS % 55.4 % (36.0-66.0); PLATELET COUNT, AUTOMATED 271 10^3/uL (150-450); RED BLOOD COUNT 4.45 10^6/uL (4.00-5.40); RED CELL DISTRIBUTION WIDTH 13.6 % (11.5-14.5); WHITE BLOOD COUNT 7.7 10^3/uL (4.0-10.0)
[2017-12-11 10:18] LABS: INR 0.93; PROTHROMBIN TIME 12.5 SECONDS (12.4-14.5)
[2017-12-11 10:31] LABS: ALBUMIN 3.4 GM/DL (3.2-5.2); ALBUMIN/GLOBULIN RATIO 1.17 (1.00-1.93); ALKALINE PHOSPHATASE 111 U/L (45-117); ALT/SGPT 13 U/L (12-78); ANION GAP 6 MEQ/L (8-16); AST/SGOT 10 U/L (7-37); BILIRUBIN,TOTAL 0.5 MG/DL (0.2-1.0); BLOOD UREA NITROGEN 20 MG/DL (7-18); CALCIUM LEVEL 8.8 MG/DL (8.8-10.2); CARBON DIOXIDE LEVEL 30 MEQ/L (21-32); CHLORIDE LEVEL 109 MEQ/L (98-107); CHOLESTEROL LEVEL 248 MG/DL (<200); CHOLESTEROL RISK RATIO 3.351 (<5); CREATININE FOR GFR 0.78 MG/DL (0.55-1.30); GLOMERULAR FILTRATION RATE > 60.0 (>32); GLUCOSE, FASTING 89 MG/DL (70-100); HDL CHOLESTEROL 74 MG/DL (>40); LDL CHOLESTEROL 137.8 MG/DL (<100); NON-HDL-C 174 MG/DL; POTASSIUM SERUM 4.5 MEQ/L (3.5-5.1); SODIUM LEVEL 145 MEQ/L (136-145); TOTAL PROTEIN 6.3 GM/DL (6.4-8.2); TRIGLYCERIDES LEVEL 181 MG/DL (<150)
== END ==
LOC: M LAB 09:45
DX: Z01.812 Encounter for preprocedural laboratory examination (principal); I25.10 Atherosclerotic heart disease of native coronary artery without angina pectoris; I11.9 Hypertensive heart disease without heart failure
CPT/HCPCS: 80053

== ENCOUNTER → 2017-12-14 | Outpatient (REF) | payer MEDICARE | LOC: M LAB REF 15:45 | DX: L08.9 Local infection of the skin and subcutaneous tissue, unspecified (principal) | CPT/HCPCS: 87077 ==

== ENCOUNTER 2018-03-09 15:00 | Emergency (ER) | payer MEDICARE | END 2018-03-09 17:42 | disposition home or self-care (01) | LOC: M ED 15:00 | DX: S09.90XA Unspecified injury of head, initial encounter (principal); W19.XXXA Unspecified fall, initial encounter; Y92.098 Other place in other non-institutional residence as the place of occurrence of the external cause; I10 Essential (primary) hypertension; M81.0 Age-related osteoporosis without current pathological fracture; F32.9 Major depressive disorder, single episode, unspecified; J44.9 Chronic obstructive pulmonary disease, unspecified; M54.9 Dorsalgia, unspecified; R39.15 Urgency of urination; Z79.82 Long term (current) use of aspirin | CPT/HCPCS: 70450 ==

== ENCOUNTER → 2018-06-06 | Outpatient (REF) | payer MEDICARE ==
[2018-06-06 16:00] LABS: ANION GAP 6 MEQ/L (8-16); BLOOD UREA NITROGEN 21 MG/DL (7-18); CALCIUM LEVEL 8.9 MG/DL (8.8-10.2); CARBON DIOXIDE LEVEL 30 MEQ/L (21-32); CHLORIDE LEVEL 107 MEQ/L (98-107); CHOLESTEROL LEVEL 169 MG/DL (<200); CHOLESTEROL RISK RATIO 2.223 (<5); GLOMERULAR FILTRATION RATE > 60.0 (>32); GLUCOSE, FASTING 98 MG/DL (70-100); HDL CHOLESTEROL 76 MG/DL (>40); LDL CHOLESTEROL 75.6 MG/DL (<100); NON-HDL-C 93 MG/DL; POTASSIUM SERUM 4.8 MEQ/L (3.5-5.1); SODIUM LEVEL 143 MEQ/L (136-145); TRIGLYCERIDES LEVEL 87 MG/DL (<150)
== END ==
LOC: M LABNEURO 11:17
DX: I25.10 Atherosclerotic heart disease of native coronary artery without angina pectoris (principal); E78.00 Pure hypercholesterolemia, unspecified; I11.9 Hypertensive heart disease without heart failure
CPT/HCPCS: 80061

== ENCOUNTER → 2018-06-28 | Outpatient (CLI) | payer MEDICARE | LOC: M RAD 17:23 | DX: I65.23 Occlusion and stenosis of bilateral carotid arteries (principal) | CPT/HCPCS: 93880 ==

== ENCOUNTER → 2018-08-04 | Outpatient (CLI) | payer MEDICARE | LOC: M LAB 10:02 | DX: G56.01 Carpal tunnel syndrome, right upper limb (principal); M19.031 Primary osteoarthritis, right wrist | CPT/HCPCS: 73100 ==

== ENCOUNTER → 2019-04-06 | Outpatient (REF) | payer MEDICARE ==
[~2019-04-06] MED LIST changes: -AMLO10TA2 PO; +AMLO10TA5 PO; +ASPI-1 PO; -ASPI325T PO; +ASPI81TA85 PO; +BREO1INH INH; +CARV12.5 PO; +FOLI1TAB11 PO; -FOLI1TAB4 PO; +HYDR-643 PO; +MEMA1TAB2 PO; +METH2.5T48 PO; -METH2.5TA PO; -OMEP20CA3 PO; +OMEP20CA4 PO; +SIMV40TA2 PO; +TESS100C PO; +VITA100018 PO; -VITA100072 PO; +ZITHTAB PO; +ZYRT10CA5 PO; -ZYRT10TA2 PO
== END ==
LOC: M SFHCLERA 18:36
PROVIDERS: ATTEND Nurse Practitioner Family
DX: R30.0 Dysuria (principal)
CPT/HCPCS: 81002; 87086; G0463

== ENCOUNTER 2019-08-11 15:22 | Emergency (ER) | payer MEDICARE ==
[~2019-08-11] VITALS: Ht 152.4 cm; Wt 44.5 kg
[2019-08-11] MEDS ORDERED: LISI10TA4 PO (15:45)
[2019-08-11] MEDS ORDERED: CARV12.5 PO (15:45)
[2019-08-11] MEDS ORDERED: NS 500 ML IV ONE ×2 (16:00→17:00)
[2019-08-11] MEDS ORDERED: DEXTROSE 50% 50 ML SYRINGE IV STA (16:30)
[2019-08-11] MEDS ORDERED: DEXTROSE 50% 50 ML SYRINGE As Ordered ONE (16:32)
[2019-08-11 16:36] LABS: BASO # 0.1 10^3/uL (0.0-0.2); BASO % 0.6 % (0.0-1.0); EOS % 0.3 % (0.0-3.0); HEMATOCRIT 54.2 % (36.0-47.0); LYMPH % 19.7 % (24.0-44.0); MEAN CORPUSCULAR HEMOGLOBIN 28.6 pg (27.0-33.0); MEAN CORPUSCULAR HGB CONC 32.8 g/dl (32.0-36.5); MEAN CORPUSCULAR VOLUME 87.1 fl (80.0-96.0); MONO # 0.8 10^3/uL (0.0-0.8); MONO % 7.9 % (0.0-5.0); NEUTROPHILS # 7.2 10^3/uL (1.5-8.5); NEUTROPHILS % 70.5 % (36.0-66.0); PLATELET COUNT, AUTOMATED 261 10^3/uL (150-450); RED BLOOD COUNT 6.22 10^6/uL (4.00-5.40); VENOUS BASE EXCESS -5.9 (-2.0-2.0); VENOUS O2 SATURATION 82.7 % (60.0-80.0); VENOUS PARTIAL PRESSURE CO2 40.9 mmHg (38.0-50.0); VENOUS PARTIAL PRESSURE O2 52.5 mmHg (30.0-50.0); VENOUS PH 7.308 UNITS (7.330-7.430); VENOUS STANDARD HCO3 19.4 MEQ/L; VENOUS TOTAL CO2 21.3 MEQ/L (24.0-28.0); WHITE BLOOD COUNT 10.2 10^3/uL (4.0-10.0)
[2019-08-11 16:48] LABS: HEMOGLOBIN 17.8 g/dl (12.0-15.5)
[2019-08-11] MEDS ORDERED: cefTRIAXone SOD 2 GM in D5W MINI-BAG PLUS 50 ML IV ONE (17:00)
[2019-08-11] MEDS ORDERED: NS 1,340 ML in IV 1 EA IV ONE (17:00)
[2019-08-11 17:15] LABS: ALT/SGPT 8757 U/L (12-78); BILIRUBIN,TOTAL 4.9 MG/DL (0.2-1.0); BLOOD UREA NITROGEN 24 MG/DL (7-18); CALCIUM LEVEL 9.2 MG/DL (8.8-10.2); CARBON DIOXIDE LEVEL 22 MEQ/L (21-32); CHLORIDE LEVEL 100 MEQ/L (98-107); CK-MB VALUE MASS 1.7 NG/ML (<3.6); CPK CREATINE PHOSPHOKINASE 119 U/L (26-192); CREATININE FOR GFR 1.51 MG/DL (0.55-1.30); GLUCOSE, FASTING 24 MG/DL (70-100); MB/CK RELATIVE INDEX 1.43 (< OR =4); POTASSIUM SERUM 4.3 MEQ/L (3.5-5.1); SODIUM LEVEL 135 MEQ/L (136-145); THYROID STIMULATING HORMONE 0.819 uIU/ML (0.358-3.740); TOTAL PROTEIN 7.1 GM/DL (6.4-8.2); TROPONIN I 0.02 NG/ML (< 0.10)
[2019-08-11] MEDS ORDERED: ISOVUE-370 76% 100ML VIAL (Q9967) As Ordered ONE (17:26)
[2019-08-11 19:00] LABS: LDH LACTATE DEHYDROGENASE 2354 U/L (84-246)
[2019-08-11] MEDS ORDERED: ALB2.5NEB INH (19:17)
--- NOTE | 2019-08-11 19:45 | REPVR ---
PROCEDURE INFORMATION: Exam: CT Abdomen And Pelvis With Contrast Exam date and time: 08/11/2019 6:09 PM Clinical history: 84 years old, female; Abdominal pain; Generalized; Additional info: Abd pain TECHNIQUE: Imaging protocol: Computed tomography of the abdomen and pelvis with intravenous contrast. Radiation optimization: All CT scans at this facility use at least one of these dose optimization techniques: automated exposure control; mA and/or kV adjustment per patient size (includes targeted exams where dose is matched to clinical indication); or iterative reconstruction. Contrast material: ISOVUE 370; Contrast volume: 100 ml; Contrast route: IV; COMPARISON: CT ABD PELVIS WITH CONTRAST 03/10/2014 11:07 PM FINDINGS: Lungs: Atelectasis and/or scar in the lung bases. Liver: Diffuse fatty infiltration of the liver. The liver has a heterogeneous appearance and is slightly diminutive and has a slightly lobulated surface contour raising the suspicion for hepatic cirrhosis. Gallbladder and bile ducts: There is low-density wall thickening and mucosal hyperenhancement of a nondistended gallbladder. No calcified gallstones are identified. The findings are nonspecific and are likely associated with hepatic disease. Acalculus cholecystitis is not completely excluded and close clinical correlation is needed. No bile duct dilatation. Pancreas: Unremarkable. No ductal dilation. Spleen: 20 mm splenic enhancing lesion is unchanged and likely hemangioma. No new splenic lesion. Adrenals: Normal. No mass. Kidneys and ureters: Left renal parapelvic cysts. Tiny right renal cyst. Bilateral renal cortical atrophy. No hydronephrosis. Stomach and bowel: Mild colonic diverticulosis without diverticulitis. Appendix: No evidence of appendicitis. Intraperitoneal space: Unremarkable. No free air. No significant fluid collection. Vasculature: Moderate atherosclerosis of the abdominal aorta and iliac arteries. No aneurysm. Lymph nodes: Unremarkable. No enlarged lymph nodes. Bladder: Unremarkable as visualized. Reproductive: Unremarkable as visualized. Bones/joints: Degenerative spondylosis of the lumbar spine. Grade 1 anterolisthesis of L3 and L4. Old anterior wedge fracture deformity of the superior endplate of T11. No acute fracture. Soft tissues: Unremarkable. IMPRESSION: 1. Diffuse fatty infiltration of the liver with findings suspicious for hepatic cirrhosis. 2. Low-density wall thickening and mucosal hyperenhancement of a nondistended gallbladder without calcified stones. These changes are likely associated with hepatic disease, although cholecystitis cannot be completely excluded. 3. Other nonemergent findings as described. COMMENT: Consistent with the [employer]'s Incidental Findings Committee Report (J Am Lamine Radiol 2010): Unless the patient's specific circumstances suggest otherwise, any liver lesion 0.5 cm or less, any cystic kidney lesion less than 1.0 cm, and/or any adrenal lesion 1.0 cm or less not otherwise characterized in this report as possessing suspicious or indeterminate imaging features is/are highly likely to be benign and do not require follow-up imaging or biopsy. Electronically signed by: Serg Branch On 08/11/2019 19:45:38 PM
[2019-08-11 19:55] LABS: PARTIAL THROMBOPLASTIN TIME 41.2 SECONDS (25.0-38.4)
[2019-08-11 19:59] LABS: INR 13.27
--- NOTE | 2019-08-11 21:06 | ED PDOC ---
Post-Departure Follow-Up D/W Dr Escobar at [facility] who was gracious to accept pt for admission there. We have no gastroenterology coverage. He requested an acetaminophen level be drawn. DRAKE MA DO Aug 11, 2019 21:06
[2019-08-11 21:24] LABS: ACETAMINOPHEN LEVEL < 2.0 UG/ML (10.0-30.0)
[2019-08-11 22:00] VITALS: BP 133/82
--- NOTE | 2019-08-12 07:31 | REP ---
CT BRAIN WITHOUT IV CONTRAST: CT brain performed without IV contrast. There is moderate atrophy. There is no midline shift of mass effect. There are chronic periventricular small vessel ishemic changes in the white matter bilaterally. There is no acute intracranial hemorrhage or extra-axial fluid collection. No skull fracture is seen. There is soft tissue swelling anteriorly on the left. IMPRESSION: Chronic changes without evidence of acute intracranial hemorrhage. No skull fracture. Electronically Signed by Camilo Amin MD 08/12/2019 03:36 P
--- NOTE | 2019-08-12 07:32 | REP ---
CHEST, SINGLE VIEW: Single view of the chest is performed. Comparison 11/22/2017. There is mild cardiomegaly. There is no acute infiltrate or pulmonary edema. There is calcification and tortuosity of the thoracic aorta. The mediastinal silhouette is unchanged. IMPRESSION: Mild cardiomegaly. No acute infiltrate. Electronically Signed by Camilo Amin MD 08/12/2019 03:36 P
[2019-08-12 12:44] LABS: HEPATITIS A ANTIBODY IGM POSITIVE (NEGATIVE); HEPATITIS B CORE ANTIBODY IGM NEGATIVE (NEGATIVE); HEPATITIS B SURFACE ANTIGEN NEGATIVE (NEGATIVE)
--- NOTE | 2019-08-12 20:11 | ECGEPIP ---
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
--- NOTE | 2019-08-13 22:29 | ECGEPIP ---
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
== END 2019-08-11 22:14 | disposition short-term general hospital (02) ==
LOC: M ED 15:22
DX: K75.9 Inflammatory liver disease, unspecified (principal); I10 Essential (primary) hypertension; J44.9 Chronic obstructive pulmonary disease, unspecified; E78.5 Hyperlipidemia, unspecified; M88.89 Osteitis deformans of multiple sites; Z79.899 Other long term (current) drug therapy; Z88.1 Allergy status to other antibiotic agents; Z88.2 Allergy status to sulfonamides; Z88.8 Allergy status to other drugs, medicaments and biological substances
CPT/HCPCS: 36415; 36556; 70450; 71045; 74177; 80048; 80076; 81001; 82140; 82550; 82553; 82803; 83605; 83615; 83930; 84443; 84484; 85025; 85610; 85730; 86705; 86709; 86803; 87040; 87340; 87486; 87581; 87633; 87798; 93005; 93041; 96361; 96374; 99285; G0480; J0696; Q9967